=== PATIENT | female | born 1950 | race Caucasian/White ===

== ENCOUNTER 2016-10-07 10:16 | Inpatient (IN) ==
[2016-10-07] MEDS ORDERED: MORPHINE SULFATE 4 MG SYRINGE IVP ONE (10:51)
[2016-10-07] MEDS ORDERED: NS 1,000 ML IV ONE (10:51)
[2016-10-07] MEDS: SALINE FLUSH 10ml SYRINGE IV PRN (11:07)
[2016-10-07] MEDS ORDERED: IOHEXOL 300mg/ml 100ml INJECTION ONE (11:40)
[2016-10-07] MEDS ORDERED: NS 100 ML ONE (11:40)
[2016-10-07] MEDS ORDERED: SALINE FLUSH 10ml SYRINGE ONE (11:41)
--- NOTE | 2016-10-07 12:33 | CT Scan Report ---
Indication: RUQ PAIN PROCEDURE: CT abdomen pelvis w con: Encounter: Initial Comparison: None Technique: Axial CT images were performed through the abdomen and pelvis after the administration of intravenous contrast. Coronal and sagittal two-dimensional reformats. Automated Exposure Control and Iterative Reconstruction dose reducing techniques were utilized. Contrast: Omnipaque 300 67 mL Findings: The lung bases are clear. There are a three foci of free intraperitoneal air anterior to the right lobe of the liver measuring 5 to 7 mm in size. There is also a small focus of free air posterior to the right lobe of the liver on axial image #18. A few foci of free air also seen below the inferior right lobe of the liver. Small low-attenuation foci in the lateral left lobe of the liver are too small to definitively characterize. No enhancing liver mass or bile duct dilatation. The gallbladder is grossly normal. The spleen, pancreas and adrenal glands are within normal limits. Kidneys show mild left hydronephrosis and a prominent extrarenal pelvis on the right. No abdominal or pelvic lymphadenopathy. Bladder is normal. Uterus is grossly normal. No evidence of a bowel obstruction. No CT evidence of acute diverticulitis. There is significant inflammation surrounding an enlarged appendix. This is in a retrocecal location adjacent to the right kidney and inferior margin of the liver. This measures up to 1.4 cm in diameter and shows an appendicolith at its base. This is best seen on axial image #46 and coronal image 24. There is some reactive inflammation and wall thickening in the adjacent cecum. Bone windows show degenerative change in the spine. Impression: Ruptured acute appendicitis with small amounts of free intraperitoneal air. Emergent surgical consultation is recommended. Findings were discussed with Dr. Deras in the emergency department at 1225 on October 07, 2016 .
--- NOTE | 2016-10-07 13:23 | Emergency Department Report ---
Abdominal Pain HPI - General Chief Complaint: Abdominal Pain Stated Complaint: abd pain sent from clinic Time Seen by Provider: 10/07/16 10:32 - History of Present Illness HPI narrative: 66-year-old female presents with right upper quadrant abdominal pain. Pain onset on Tuesday. She states she had a fever of 101-1/2 yesterday with cramping. She previously had an infection she believes is from well water and it took several years before was treated. She states that for that entire time she had diarrhea similar to what she has now. She is afebrile today, but pain is definitely increased. She has had several episodes of diarrhea today and is very concerned. She rates her pain as 7 out of 10. - Related Data Home Medications Medication Instructions Recorded Confirmed Glucosa Nowak 2Kcl/Chondroitin Nowak 1 tab PO DAILY 10/07/16 10/07/16 [Glucosamine Chondroitin Caplet] Loratadine [Claritin] 10 mg PO DAILY 10/07/16 10/07/16 Potassium Chloride [Klor-Con M20] 20 meq PO DAILY 10/07/16 10/07/16 Allergies Allergy/AdvReac Type Severity Reaction Status Date / Time No Known Allergies Allergy Verified 10/07/16 10:56 Review of Systems All systems: reviewed and negative except as stated Gastrointestinal: Reports: as per HPI Musculoskeletal: Reports: as per HPI [facility] Patient Stated Medical History Other HEENT Yes: WEARS GLASSES Asthma Yes - Social History Smoking status: Never smoker Substance use type: does not use Alcohol intake frequency: does not drink Physical Exam - General General appearance: alert - Normal Exams: Head:: Normocephalic without trauma Chest/Respirations:: Clear all william, with good airflow, and symmetry bilaterally Cardiovascular:: Regular rate and rhythm, without murmur or gallop, Pulses 2+ all extremities, capillary refill, <2 seconds all extremities Integumentary:: No rashes, hives, or bruising noted, hair and nails, without abnormality Neurological:: Patient is alert, and oriented, cranial nerves, motor/sensory/ cerebellar, exams w/o gross deficits, to observation Psychiatric:: Patient exhibits, appropriate attention, emotion and affect - Abdominal Exam Abdominal exam: Present: distention, tenderness, guarding, hyperactive bowel sounds, tenderness at McBurney's Point. Absent: rebound, rigidity, trauma, incision, mass, pulsatile mass Course Vital Signs Temperature 97.7 F 10/07/16 10:23 Pulse Rate 103 H 10/07/16 10:23 Respiratory Rate 19 10/07/16 10:23 Blood Pressure 106/51 10/07/16 10:23 Pulse Oximetry 99 10/07/16 10:23 Temperature 97.7 F 10/07/16 10:23 Pulse Rate 103 H 10/07/16 10:23 Respiratory Rate 19 10/07/16 10:23 Blood Pressure 106/51 10/07/16 10:23 Pulse Oximetry 99 10/07/16 10:23 Abdominal Pain - MDM Narrative Medical decision making narrative: Patient has elevated white count at 18,000, right upper quadrant pain and CT scan which shows retrocecal appendix which is ruptured. Dr. Miller was consulted and is speaking with the patient to set up surgery. At this time she is stable, has received morphine 2 mg IV and normal saline 1 L IV. - Lab Data Result diagrams: 10/07/16 10:45 10/07/16 11:09 Lab Results 10/07/16 10/07/16 10/07/16 Range/Units 10:45 11:06 11:09 WBC 18.9 H (4.5-11.0) T/MM3 RBC 4.32 (4.00-5.20) M/MM3 Hgb 13.3 (12-16) GM/DL Hct 40.2 (36-46) % MCV 93.1 (80-100) UM3 MCH 30.8 (26-34) UUG MCHC 33.1 (31-37) GM/DL RDW Std Deviation 44.4 (36.9-50.2) FL Plt Count 242 (130-400) T/MM3 MPV 11.4 (9.4-12.4) UM3 Immature Gran % (Auto) Not performed Neut % (Auto) Not performed Lymph % (Auto) Not performed Tift % (Auto) Not performed Eos % (Auto) Not performed Baso % (Auto) Not performed Neut # Not performed Lymph # Not performed Tift # Not performed Baso # Not performed Abs Immat Gran (auto) Not performed Neutrophils % (Manual) 74.0 H (33-66) % Band Neutrophils % 14.0 H (0-6) % Lymphocytes % (Manual) 8.0 L (23-45) % Monocytes % (Manual) 4.0 (0-9.0) % Neutrophils # (Manual) 14.0 H (1.8-7.7) T/MM3 Band Neutrophils # 2.6 T/MM3 Lymphocytes # (Manual) 1.5 (1-4.8) T/MM3 Monocytes # (Manual) 0.8 (0-0.8) T/MM3 RBC Morph Comment Normal Turbidity < 20 (0-20) Sodium 141 (134-144) MEQ/L Potassium 4.6 (3.6-5) MEQ/L Chloride 100 (98-107) MEQ/L Carbon Dioxide 24 (22-30) MEQ/L Anion Gap 17 H (5-15) MEQ/L BUN 21.0 H (7-17) MG/DL Creatinine 1.4 H (0.7-1.2) MG/DL GFR Calculation 38 BUN/Creatinine Ratio 15 (6-26) RATIO Glucose 107 (65-110) MG/DL Calculated Osmolality 274 (261-280) MOSM/KG Calcium 10.0 (8.4-10.2) MG/DL Total Bilirubin 0.90 (0.20-1.30) MG/DL Icterus Index < 2 (0-7) AST 20 (14-36) U/L ALT 21 (9-52) U/L Alkaline Phosphatase 74 (38-126) U/L Troponin I < 0.012 (0-0.12) ng/ml Total Protein 7.3 (6.3-8.2) G/DL Albumin 4.4 (3.5-5.0) G/DL Globulin 2.9 (2.4-3.6) G/DL Albumin/Globulin Ratio 1.5 (1.1-2.2) RATIO Lipase 31 (23-300) U/L Plasma Lactate 2.0 (0.6-2.2) MMOL/L Specimen Hemolysis < 15 (0-25) Ur Collection Type Urine, clean catch Urine Color Yellow (YELLOW) Urine Clarity Sl cloudy Urine pH 5.5 (5.0-8.0) Ur Specific [place] 1.020 (1.015-1.025) Urine Protein 1+ A (NEGATIVE) Urine Glucose (UA) Negative (NEGATIVE) Urine Ketones 2+ A (NEGATIVE) Urine Occult Blood 1+ A (NEGATIVE) Urine Nitrate Negative (NEGATIVE) Urine Bilirubin 1+ A (NEGATIVE) Urine Urobilinogen 0.2 (NORMAL) EU/DL Ur Leukocyte Esterase Trace A (NEGATIVE) Urine RBC None seen (0-3) /HPF Urine WBC 3-5 (0-5) /HPF Urine Bacteria Trace H (NEGATIVE) RBC Casts 5-10 /LPF Ur Culture Indicated? Cult not indicated Disposition Clinical Impression: Acute appendicitis with rupture Disposition: 02 To [facility] Condition: Stable Prescriptions: No Action Glucosa Nowak 2Kcl/Chondroitin Nowak [Glucosamine Chondroitin Caplet] 1 tab PO DAILY Loratadine [Claritin] 10 mg PO DAILY Potassium Chloride [Klor-Con M20] 20 meq PO DAILY Time of Disposition: 12:50 - Seen By: physician
[2016-10-07] MEDS ORDERED: ERTAPENEM 1 G in NS 100 ML IV ONE (13:33)
--- NOTE | 2016-10-07 13:52 | Anesthesia Preoperative Report ---
Anesthesia Preoperative Record - Date and Time Date: 10/07/16 NPO Since Date: 10/06/16 NPO Since Time: 21:00 Allergies/Adverse Reactions: Allergies Allergy/AdvReac Type Severity Reaction Status Date / Time No Known Allergies Allergy Verified 10/07/16 10:56 - Vital Signs Vital Signs: Temp Pulse Resp BP Pulse Ox 97.9 F 102 H 18 123/60 98 10/07/16 13:40 10/07/16 13:40 10/07/16 13:40 10/07/16 13:40 10/07/16 13:40 Height and Weight: Height 1.57 m Weight 56.3 kg Body Mass Index 22.6 - Medications Inpatient Medications: Current Medications Ertapenem 1 g/ Sodium Chloride 100 mls @ 200 mls/hr IV INTRAOP ONE Stop: 10/07/16 14:02 Sodium Chloride (Iv Flush) 10 - 80 ml IV PRN PRN PRN Reason: Flushing Last Admin: 10/07/16 11:07 Dose: 10 ml Home Medications: Home Medications Medication Instructions Recorded Confirmed Type Glucosa Nowak 2Kcl/Chondroitin Nowak 1 tab PO DAILY 10/07/16 10/07/16 History [Glucosamine Chondroitin Caplet] Loratadine [Claritin] 10 mg PO DAILY 10/07/16 10/07/16 History Potassium Chloride [Klor-Con M20] 20 meq PO DAILY 10/07/16 10/07/16 History Is Patient on Beta Azeb?: No Beta Azeb: No - Social History Smoking Status: Never smoker Hx Chewing Tobacco Use: No Second Hand Exposure: No Alcohol Intake Frequency: does not drink - Pertinent Findings Laboratory: CBC and BMP 10/07/16 10:45 10/07/16 11:09 BMP 10/07/16 11:09 Sodium 141 Potassium 4.6 Chloride 100 Carbon Dioxide 24 BUN 21.0 H Creatinine 1.4 H Glucose 107 Calcium 10.0 Cardiac Enzymes 10/07/16 Range/Units 11:09 Troponin I < 0.012 (0-0.12) ng/ml Liver Function 10/07/16 Range/Units 11:09 Total Bilirubin 0.90 (0.20-1.30) MG/DL AST 20 (14-36) U/L ALT 21 (9-52) U/L Alkaline Phosphatase 74 (38-126) U/L Albumin 4.4 (3.5-5.0) G/DL Urine 10/07/ Range/Units 11:06 Urine Color Yellow (YELLOW) Urine Clarity Sl cloudy Urine pH 5.5 (5.0-8.0) Ur Specific [place] 1.020 (1.015-1.025) Urine Protein 1+ A (NEGATIVE) Urine Glucose (UA) Negative (NEGATIVE) - Physical Exam Respiratory Exam: Present: lungs clear, bilateral breath sounds equal Cardiovascular Exam: Present: regular rate and rhythm - Airway Assessment Mallampati Score: II TMD: 2 Fingerbreadths Neck Extension: good Overall Assessment: may be difficult intubation - ASA ASA Score: 2 - Plan Anesthesia: General Inhalation Gases - Discussion Discussion: Discussed risks/options/alternatives of anesthesia and questions answered. Patient consents. Nursing pain assessment noted. Present for Discussion: family member Attestation Statement: Prior to the delivery of any anesthetic medication, I examined the patient, developed the plan, obtained the patient's consent and discussed the risk and benefits of the procedure with the patient/guardian. - Additional Information Seen by Anesthesia: Yes
[2016-10-07] MEDS: NS 1,000 ML IV PRN ×2 (13:57→15:10)
[2016-10-07] MEDS ORDERED: FentaNYL 250 MCG/5 ML INJECTION ONE (14:02)
[2016-10-07] MEDS ORDERED: PROPOFOL 20 ML ONE (14:02)
[2016-10-07] MEDS ORDERED: HYDROMORPHONE 2 MG/ML INJECTION ONE (14:02)
[2016-10-07] MEDS ORDERED: ROCURONIUM 50 MG/5 ML INJECTION IVP ONE (14:02)
[2016-10-07] MEDS ORDERED: SUCCINYLCHOLINE 20mg/mL 10mL INJECTION ONE (14:04)
[2016-10-07] MEDS ORDERED: ONDANSETRON 4 MG/2 ML INJECTION ONE (14:15)
[2016-10-07] MEDS ORDERED: DEXAMETHASONE 4 MG/ML INJECTION ONE (14:15)
[2016-10-07] MEDS ORDERED: PHENYLEPHRINE INJ 10 MG/ML VIAL ONE (14:25)
[2016-10-07] MEDS ORDERED: SUGAMMADEX 200mg/2ml INJECTION IVP ONE (14:46)
[2016-10-07] MEDS ORDERED: BUPIVACAINE 0.25% (2.5mg/ml) PF 30ml INJECTION ID ONE (14:48)
--- NOTE | 2016-10-07 14:51 | History and Physical ---
HISTORY OF PRESENT ILLNESS This patient is 66 years old. The patient developed the onset of some abdominal pain during the night of 10/04/2016. She felt better on 10/05/2016. She felt worse again on 10/06/2016. The abdominal pain is even worse today. The patient has had right lower quadrant abdominal pain. She has had nausea. She has had no vomiting. She has had no diarrhea. She has not had anything to eat since yesterday morning because of the severity of the abdominal pain. The patient did come to [facility] Emergency Room for evaluation of this right lower quadrant abdominal pain on 10/07/2016. A CT scan of the abdomen and pelvis performed at the time of emergency room evaluation shows acute appendicitis with perforation.. PAST MEDICAL HISTORY Previous Operations: None. Other Previous Hospitalizations: The patient states that the only hospitalizations she has ever had in the past have been obstetrical hospitalizations. CURRENT MEDICATIONS 1. Ptry-abf-[id number] allergy medication. 2. Potassium. 3. Glucosamine. ALLERGY HISTORY The patient states she has no known allergies to medications. PHYSICAL EXAMINATION VITAL SIGNS: Temperature is 97.8 degrees oral. Pulse is 100. Respiratory rate is 20. Blood pressure is 115/54. Oxygen saturation is 98% on room air. Height is 1.57 meters. Weight is 56.3 kg. BMI is 22.7 kg/m2. HEAD, EYES, EARS, NOSE AND THROAT: No abnormalities noted. NECK: No neck masses. CHEST: Lung sounds are clear. HEART: Regular rhythm. No murmurs. BREASTS: Not examined. ABDOMEN: The patient does have right lower quadrant abdominal tenderness. No old incision scars. No abdominal masses. SKIN: No jaundice. RECTUM: Exam deferred. EXTREMITIES: No abnormalities noted. LABORATORY DATA White blood cell count is 18,900 with 14 bands and 74 neutrophils. Serum creatinine is 1.4. BUN is 21. Serum electrolytes are normal. Liver function tests are all normal. Plasma lactate is 2. Serum lipase is 31. IMAGING DATA This patient did have a CT scan of the abdomen and pelvis at the time of evaluation at [facility] Room on 10/07/2016. This does show ruptured acute appendicitis with small amounts of free intraperitoneal air. The gallbladder is normal. There is no bile duct dilation. There is significant inflammation surrounding an enlarged appendix. The appendix appears to be in a retrocecal location adjacent to the right kidney and the inferior margin of the liver. There is some reactive inflammation and wall thickening of the adjacent cecum. IMPRESSION 1. Acute appendicitis with perforation. PATIENT EDUCATION I did inform the patient and her family of the CT scan findings. I did describe to the patient the nature of a laparoscopic appendectomy operation. I did tell the patient that with the perforation of the appendix and the thickening of the cecum that it might be necessary for the laparoscopic appendectomy operation to be converted over to an open laparotomy with appendectomy operation. Expected benefits of operation were reviewed. Alternatives were reviewed. Potential risks and complications were reviewed including anesthetic risk, bleeding, infection, poor wound healing, postoperative abscess and injury to intraabdominal and retroperitoneal structures at the time of operation. Questions were solicited from the patient. All of her questions were answered. The patient does wish to proceed. PLAN Admit patient to [facility] to undergo laparoscopic appendectomy with possible conversion to open laparotomy with appendectomy for treatment of perforated acute appendicitis. FREDDY
--- NOTE | 2016-10-07 15:41 | General Surgery Procedure Note ---
Date of Procedure: 10/07/16 Surgeon: Paul Postoperative Diagnosis: Acute appendicitis with perforation Procedure: Laparoscopic appendectomy Estimated Blood Loss: See Anesthesia Record.
--- NOTE | 2016-10-07 16:17 | Anesthesia Postoperative Note ---
- Date and Time Date: 10/07/16 Time: 16:17 - Status Patient Participated in Evaluation: Patient Participated in Person Vital Signs: Temp Pulse Resp BP Pulse Ox 97.8 F 101 H 12 111/57 98 10/07/16 16:10 10/07/16 16:15 10/07/16 16:15 10/07/16 16:15 10/07/16 16:15 Respiratory Function: Airway Patent, Regular Respirations Cardiovascular Function: Regular Pulse Mental Status: Alert and Oriented Pain Intensity: 0 Hydration: IV Infusing Complications During Recover: None Apparent - Follow-Up Instructions Instructions: Per Surgeon
[2016-10-07] MEDS ORDERED: MORPHINE SULFATE 10 MG SYRINGE IV PRN (16:18)
[2016-10-07] MEDS ORDERED: IBUPROFEN 200 MG TABLET PO PRN (16:18)
[2016-10-07] MEDS ORDERED: PROMETHAZINE 25 MG INJECTION IVP PRN (16:18)
[2016-10-07] MEDS ORDERED: ACETAMINOPHEN 500 MG TABLET PO PRN (16:18)
[2016-10-07] MEDS: D5-1/2NS with KCL 20mEq 1,000 ML IV SCH (16:47)
[2016-10-07] MEDS: ONDANSETRON 4 MG/2 ML INJECTION IVP PRN ×2 (16:56→20:18)
[2016-10-07] MEDS: PIPERACILLIN/TAZOBACTAM 3.375 GM in NS 100 ML IV SCH (16:58)
[2016-10-08] MEDS: PIPERACILLIN/TAZOBACTAM 3.375 GM in NS 100 ML IV SCH ×5 (00:07→23:31)
[2016-10-08] MEDS: D5-1/2NS with KCL 20mEq 1,000 ML IV SCH ×3 (02:51→15:56)
[2016-10-08] MEDS: OXYCODONE IR 5 MG TABLET PO PRN ×2 (04:09→07:30)
--- NOTE | 2016-10-08 13:47 | Operative Note ---
DATE OF OPERATION 10/07/2016 PREOPERATIVE DIAGNOSIS Acute appendicitis with perforation. POSTOPERATIVE DIAGNOSIS Acute appendicitis with perforation. OPERATION Laparoscopic appendectomy. SURGEON Dr. Miller ANESTHESIA General: ASA CLASS 2E FINDINGS This patient did have acute appendicitis with perforation. The appendix was located at the right upper quadrant of the abdomen. The cecum was located at the right upper quadrant of the abdomen. This location did correlate with the location demonstrated on the preoperative CT scan of the abdomen and pelvis. The patient did have acute appendicitis. The patient had a long segment at the midportion of the appendix which was completely necrotic and in fragments. The base of the appendix where the appendix was attached to the cecum had a fairly normal appearance. The appendix was perforated. There was a lot of pus around the appendix. There was liquid stool coming out through the perforation site of the appendix into the peritoneal cavity. There was an appendicolith within the necrotic portion of the appendix. There was quite a bit of purulent fluid at the right lateral gutter and at the right subdiaphragmatic space and at the subhepatic space. There was quite a bit of purulent exudate at the right lateral gutter, at the right subdiaphragmatic space and at the subhepatic space. Cecum and terminal ileum appeared normal except for some secondary inflammation associated with the acute appendicitis. There was some purulent fluid in the pelvis. There was not as much inflammation found at the right lower quadrant and pelvis as there was at the right upper quadrant. DESCRIPTION OF OPERATION The patient was placed in supine position on the operating table. General anesthesia was satisfactorily induced. A Ramos catheter was inserted into the urinary bladder. The abdomen was prepped and draped in routine sterile fashion. The skin and underlying structures at the abdominal wall at an infraumbilical incision site were infiltrated with bupivacaine 0.25% without epinephrine. An infraumbilical incision was made. A Veress needle was inserted into the peritoneal cavity through the incision. Pneumoperitoneum was established with carbon dioxide. The Veress needle was removed. A 5-mm port was placed at the infraumbilical incision. The 5 mm laparoscope was inserted through the 5 mm infraumbilical port. The skin and underlying abdominal wall structures were infiltrated with bupivacaine at the midline of the abdomen at the subxiphoid area. An incision was made at this location and a 5-mm port was placed at the midline of the abdomen in a subxiphoid location at the epigastric region of the abdomen. The skin and underlying abdominal wall structures were infiltrated with bupivacaine at a suprapubic incision site. A suprapubic incision was made at the midline. A 12-mm port was placed at the suprapubic incision. The peritoneal cavity was examined with the laparoscope with findings as described above. The appendix was grasped and elevated with the endoscopic Freeburg forceps inserted at the suprapubic port. Some irrigation was performed around the appendix. Irrigation was performed at the right lateral gutter and at the subdiaphragmatic space. Purulent fluid was aspirated and removed from the peritoneal cavity. The mesoappendix at the level of the mid appendix was divided with the Ethicon brand 5 mm laparoscopic ultrasonically activated coagulating lori. The appendix was so necrotic at the mid appendix that the appendix into two pieces at this time. The distal portion of the appendix was placed in a specimen retrieval pouch. The specimen retrieval pouch containing this portion of the appendix was brought out through the suprapubic incision. This portion of the appendix was submitted as a specimen for study by the pathologist. The 12 mm port was reinserted at the suprapubic incision. Irrigation was performed around the remaining proximal portion of the appendix. This remaining proximal portion of the appendix was dissected out further. Liquid stool around this part of the remaining proximal portion of the appendix was removed with irrigation at this time. The appendicolith was identified at this time. The appendicolith was grasped with a 12-mm Maty forceps and brought out through the 12-mm suprapubic port and removed from the patient. The 12 mm Freeburg forceps which had been used to do this was handed off at this point. The 12 mm port through which the appendicolith had been removed was discarded at this point. A new 12 mm port was reinserted at the suprapubic incision. The remaining proximal portion of the appendix was dissected out further at this time. More irrigation was performed around this remaining proximal portion of the appendix. There was necrotic appendix still attached to this remaining proximal portion of the appendix. The mesoappendix associated with this remaining proximal portion of the appendix was divided with the Ethicon brand 5 mm laparoscopic ultrasonically activated coagulating lori. Two separate 0- PDS Endoloop ligatures with then applied to the base of the appendix adjacent to the cecum. The appendix was then divided just beyond these ligatures with the curved dissecting scissors. The proximal portion of the appendix was then placed in another specimen retrieval pouch. This specimen retrieval pouch containing the proximal portion of the appendix was brought out through the suprapubic incision. The proximal portion of the appendix was placed in the same container which had the distal portion of the appendix and these two pieces of appendix were submitted together in one container for study by the pathologist. The appendiceal stump was examined at this time with the laparoscope and the appendiceal stump had a satisfactory appearance. More irrigation was then performed throughout the right lateral gutter and the right subdiaphragmatic space and the subhepatic space and down in the pelvis. Irrigation was performed in all these areas until the irrigation fluid was clear. A small incision was then made at the right lower quadrant of the abdomen. A 5-mm port was placed through this incision. A 19-Romansh round Alfa-Cummings channel drain was then inserted through the 5-mm port into the peritoneal cavity. The inner end of this 19-Romansh round Alfa-Cummings channel drain was grasped with a 5 mm endoscopic Freeburg forceps inserted at the subxiphoid epigastric port and the inner end of this Alfa-Cummings channel drain was placed along the right side of the liver and at the right lateral gutter. The Alfa-Cummings channel drain did pass along the right lateral gutter at the right upper quadrant of the abdomen at the area where the appendix had been located. The 5 mm port of the right lower quadrant incision was removed leaving the Alfa-Cummings channel drain in place. The drain was located along the right side of the liver and all the way down through the right lateral gutter and came out through the incision at the right lower quadrant of the abdomen. The Alfa-Cummings channel drain was secured to the skin with a couple of stitches of 2-0 Prolene suture. The suprapubic port was removed. The subxiphoid midline epigastric port was removed. Laparoscope was removed. The infraumbilical port was removed. Carbon dioxide was removed from the peritoneal cavity by desufflation. The fascial layer of the suprapubic incision was closed with a series of simple interrupted stitches using 0 Vicryl suture. The fascial layer of the infraumbilical incision was closed with a single [id number] stitch using 0 Vicryl suture. Skin margins were then closed at all the incisions with subcuticular stitches using 4-0 Vicryl suture. Benzoin and 1/4-inch wide Steri-Strips were applied to the incisions. Sterile dressings were applied. The patient tolerated the operation well. The patient was transferred from the operating room to the recovery room in satisfactory condition. FREDDY
--- NOTE | 2016-10-08 19:55 | Progress Note ---
DATE 10/08/2016 POSTOP DAY #1 HISTORY The patient has been ambulating in the halls. She has good pain control. She is tolerating a clear liquid diet. She is having some gas pains. She has had no flatus or bowel movement since the operation. The patient is receiving Zosyn intravenously every six hours. PHYSICAL EXAMINATION VITAL SIGNS: Temperature is 98.3 degrees oral. Pulse is 85. Respiratory rate is 16. Blood pressure is 106/56. Oxygen saturation is 98% on room air. ABDOMEN: All of the abdominal incisions look good. The Alfa-Cummings channel drain site at the right lower quadrant of the abdomen looks good. LABORATORY DATA White blood cell count 15,500 with 7 bands today. Hemoglobin is 12. Hematocrit is 36.9. IMPRESSION Doing well following laparoscopic appendectomy for treatment of acute appendicitis with perforation on 10/07/2016. PLAN 1. Continue intravenous Zosyn. 2. Continue a clear liquid diet. 3. Continue ambulation. 4. Continue sequential compression devices for deep venous thrombosis prophylaxis. 5. Recheck white blood cell count tomorrow. [facility]
[2016-10-09] MEDS: D5-1/2NS with KCL 20mEq 1,000 ML IV SCH ×2 (03:16→18:49)
[2016-10-09] MEDS: PIPERACILLIN/TAZOBACTAM 3.375 GM in NS 100 ML IV SCH (05:03)
[2016-10-09] MEDS: PIPERACILLIN/TAZOBACTAM 2.25 GM in NS 100 ML IV SCH ×3 (11:58→23:14)
[2016-10-09] MEDS: SALINE FLUSH 10ml SYRINGE IV PRN (15:37)
[2016-10-09] MEDS: SIMETHICONE 80 MG CHEWABLE TABLET PO PRN (17:59)
[2016-10-10] MEDS: OXYCODONE IR 5 MG TABLET PO PRN (02:23)
[2016-10-10] MEDS: SIMETHICONE 80 MG CHEWABLE TABLET PO PRN ×2 (02:24→10:48)
[2016-10-10] MEDS: PIPERACILLIN/TAZOBACTAM 2.25 GM in NS 100 ML IV SCH ×2 (05:26→10:48)
[2016-10-10] MEDS: D5-1/2NS with KCL 20mEq 1,000 ML IV SCH (05:27)
--- NOTE | 2016-10-10 14:44 | Discharge Summary ---
Discharge Plan - Med Rec/Dispo Referrals/Follow Up: Pillo Miller MD [Physician] - (Rachael will call patient to schedule postop followup office visit appointment.) Di Instructions: Laparoscopic Appendectomy (DC) Prescriptions: Continue Glucosa Nowak 2Kcl/Chondroitin Nowak [Glucosamine Chondroitin Caplet] 1 tab PO DAILY Loratadine [Claritin] 10 mg PO DAILY Potassium Chloride [Klor-Con M20] 20 meq PO DAILY - Disposition 01 Discharged Home, Self-Care
[2016-10-10] MEDS ORDERED: PIPERACILLIN/TAZOBACTAM 3.375 GM in NS 100 ML IV SCH (17:00)
--- NOTE | 2016-10-11 07:21 | Progress Note ---
DATE 10/09/2016 POSTOP DAY #2 HISTORY The patient feels worse today. She is having abdominal bloating and more gas pains. She has more fatigue today that she had yesterday. She feels worse than she did yesterday. The patient has continued to pass some flatus. She has continued to tolerate the clear liquid diet in small amounts. She continues to receive Zosyn intravenously every six hours. PHYSICAL EXAMINATION VITAL SIGNS: Temperature is 96 degrees oral. Pulse is 96. Respiratory rate is 26. Blood pressure is 126/67. Oxygen saturation is 98% on room air. ABDOMEN: There is some mild distention of the abdomen. The abdomen is soft. All the incisions look good. INTAKE AND OUTPUT The patient is having 30 ml of output from the Alfa-Cummings channel drain each 8-hour shift for the last two shifts. LABORATORY DATA White blood cell count is 10,100 today with no bands. Hemoglobin is 11.1. Hematocrit is 34.6. IMPRESSION Doing well following laparoscopic appendectomy on 10/07/2016 for treatment of acute appendicitis with perforation. PLAN 1. Decrease rate of administration of intravenous fluids. 2. Advance diet as tolerated 3. Advance activity as tolerated. 4. Continue intravenous Zosyn. 5. Continue sequential compression devices for deep venous thrombosis prophylaxis. MTDD
--- NOTE | 2016-10-11 11:22 | Progress Note ---
DATE 10/10/2016 POSTOP DAY #3 HISTORY The patient feels much better today than she did yesterday. She is tolerating a regular diet. She is passing flatus. She has not had a bowel movement yet since her operation. She is ambulating well. She is using ibuprofen only for oral analgesics for pain control. INTAKE AND OUTPUT The patient has been having a Alfa-Cummings channel drain output of 20 mL per 8- hour shift. PHYSICAL EXAMINATION VITAL SIGNS: Temperature is 96.9 degrees axillary. Pulse is 91. Respiratory rate is 18. Blood pressure is 109/52. Oxygen saturation is 98% on room air. ABDOMEN: The abdomen is soft and nondistended. The abdominal incisions all look good. LABORATORY DATA White blood cell count is 8900 with no bands today. Hemoglobin is 11.6. Hematocrit is 35.6. IMPRESSION 1. Doing well following laparoscopic appendectomy for treatment of acute appendicitis with perforation on 10/07/2016. 2. Sepsis, resolved. PLAN Dismiss patient from [facility] today. DISCHARGE MEDICATIONS 1. Resume medications which the patient was taking prior to hospitalization. 2. Cipro 500 mg one p.o. b.i.d. (dispense 10 - no refills). 3. Flagyl 500 mg one p.o. t.i.d. (dispense 15 - no refills). 4. Ibuprofen 200 mg 2-4 tablets p.o. every 6 hours p.r.n. pain. DISCHARGE DISPOSITION Followup office visit with Dr. Miller on 10/14/2016. TREATMENT I did remove the Alfa-Cummings channel drain at the right lower quadrant of the abdomen today. FREDDY
--- NOTE | 2016-10-17 13:05 | Discharge Summary ---
DISCHARGE DIAGNOSES 1. Acute necrotizing appendicitis with perforation. 2. Sepsis. 3. Acute peritonitis. OPERATION Laparoscopic appendectomy. HOSPITAL COURSE This patient was admitted to [facility] by Dr. Miller on 10/07/2016. History and physical examination findings at the time of admission to the hospital can be found in the dictated admission history and physical examination report in the chart. White blood cell count was 18,900 with 14 bands at the time of admission to the hospital. Plasma lactate was 2. Serum lipase was 31. The patient had a CT scan of the abdomen and pelvis performed at the time of admission to the hospital which did show ruptured acute appendicitis with small amounts of free intraperitoneal air. The appendix appeared to be a retrocecal location adjacent to the right kidney and inferior to the margin of the liver. Admission diagnosis was acute appendicitis with perforation. The patient did undergo a laparoscopic appendectomy on 10/07/[address] Miller. Details of operative findings can be found in the dictated operative report in the chart. The patient tolerated the operation well. The patient was found to have acute necrotizing appendicitis with perforation. There was acute peritonitis associated with the acute appendicitis. The appendix was in a location at the right upper quadrant of the abdomen. A Alfa-Cummings channel drain was placed to the right lateral gutter and brought out through a right lower quadrant opening at the abdominal wall at the time of operation. The patient was given intravenous Invanz preoperatively. Intravenous Zosyn every six hours was started postoperatively. The patient appeared to tolerate the operation well. On the first postoperative day, the patient was ambulating in the halls. The patient had good pain control. She was tolerating a clear liquid diet. The patient was receiving Zosyn intravenously every six hours. The patient had the usual expected serosanguineous drainage from the Alfa-Cummings channel drain at the right lower quadrant of the abdomen. White blood cell count was 15,500 with 7 bands. Sequential compression boots were started preoperatively and were being continued at this time for deep venous thrombosis prophylaxis. On the second postoperative day, the patient felt worse. She was having abdominal bloating and more gas pains. She had more fatigue. She was passing flatus. The patient continued to tolerate a clear liquid diet in small amounts. She continued to receive Zosyn intravenously every six hours. The patient was having 30 mL of output from the Alfa-Cummings channel drain to the peritoneal cavity each eight-hour shift. The patient was afebrile. White blood cell count was 10,100 with no bands. Rate of administration of intravenous fluids was decreased. Diet was advanced. Activity was advanced. Intravenous Zosyn was continued every six hours. Sequential compression devices were continued for deep venous thrombosis prophylaxis. On the third postoperative day, the patient felt much better than she had on the previous day. She was now tolerating a regular diet. She was passing flatus. She had not yet had a bowel movement since the operation. She was ambulating well. She was using only ibuprofen for pain control. The patient was having a Alfa-Cummings channel drain output of 20 mL per eight-hour shift. Dr. Miller did remove the Alfa-Cummings channel drain at the right lower quadrant on the third postoperative day. The patient was afebrile. The abdominal incisions looked good. White blood cell count was 8900 with no bands. The patient was discharged from [facility] on the third postoperative day. The pathology report was returned on the appendix specimen submitted at the time of the operation. The diagnosis on the appendix was marked acute appendicitis with acute peritonitis. DISCHARGE MEDICATIONS 1. Zngr-glu-frgmysz allergy medication. 2. Potassium. 3. Glucosamine. 4. Cipro 500 mg one p.o. b.i.d. (dispense 10 - no refills). 5. Flagyl 500 mg one p.o. t.i.d. (dispense 15 - no refills). 6. Ibuprofen 200 mg two to four tablets p.o. every six hours p.r.n. pain. DISCHARGE DISPOSITION Followup office visit with Dr. Miller on 10/14/2016. FREDDY
== END 2016-10-10 15:35 | disposition home or self-care (01) | DRG 853 ==
LOC: ED 10:16 → SUR 12:38 → SRG 16:20
PROVIDERS: ADMIT Surgery; ATTEND Surgery